=== PATIENT | female | born 1940 | race Caucasian/White ===

== ENCOUNTER 2017-11-23 16:52 | Emergency (ER) | payer MEDICARE, OTHER ==
[~2017-11-23] VITALS: Ht 172.7 cm; Wt 71.5 kg
[~2017-11-23 16:52] MED LIST changes: -BACTRIM DS TAB1 EAC1 PO; -BENADRYL25 MG PO; -CARVEDILOL12.5 MG PO; -MEDROLDOSEPACK PO; -NEURONTIN 400M400 M2 PO; -PEPCID20 MG PO; -PERCOCET 5-3251 EACH PO; -PREDNISONE 20 M20 M1 PO
[2017-11-23] MEDS ORDERED: CARVEDILOL12.5 MG PO (17:22)
[2017-11-23] MEDS ORDERED: BENADRYL25 MG PO (18:31)
[2017-11-23] MEDS ORDERED: MEDROLDOSEPACK PO (18:31)
[2017-11-23] MEDS ORDERED: PEPCID20 MG PO (18:31)
[2017-11-23 18:48] VITALS: BP 175/104
== END 2017-11-23 18:49 | disposition home or self-care (01) ==
LOC: M.ERS 16:52
DX: T78.3XXA Angioneurotic edema, initial encounter (principal); M79.7 Fibromyalgia; F32.9 Major depressive disorder, single episode, unspecified; F41.9 Anxiety disorder, unspecified; K21.9 Gastro-esophageal reflux disease without esophagitis; M19.90 Unspecified osteoarthritis, unspecified site; I10 Essential (primary) hypertension; F17.210 Nicotine dependence, cigarettes, uncomplicated; Z95.5 Presence of coronary angioplasty implant and graft; Z88.8 Allergy status to other drugs, medicaments and biological substances

== ENCOUNTER → 2017-11-23 | Outpatient (CLI) | payer MEDICARE, OTHER ==
[~2017-11-23] MED LIST: AMBIEN 5 MG TABL5 M1 PO; AMOXICILLIN 50500 MG PO; ASPIR 8181 MG PO; ASPIRIN325 PO; AUGMENTIN 875875 MG PO; BACTRIM DS TAB1 EAC1 PO; BENADRYL25 MG PO; BYSTOLIC 5 MG5 M1 PO; CALCIUM PO; CARDURA4 MG PO; CARVEDILOL12.5 MG PO; CARVEDILOL6.25 MG PO; CLONAZEPAM 1 MG1 M1; CYCLOBENZAPRINE5 MG PO; DICLOFENAC PO; FENTANYL PA25 MCG/HR TRANSDERM; FLAGYL500 MG; FLEXERIL; HYDROCODONE-AP1 EAC6 PO; HYDROCODONE-APA1 TA1 PO; LEXAPRO 10 MG T10 MG; LIORESAL 10 MG10 MG PO; LIPITOR20 MG PO; LISINOPRIL10 MG PO; MEDROLDOSEPACK PO; MELATONIN3 MG; MIRALAX255 GM; MIRTAZAPINE15 M2 PO; NEURONTIN 300300 M1 PO; NEURONTIN 400M400 M2 PO; NITROGLYCERIN0.3 MG SL; NITROGLYCERIN0.4 MG SL; NORCO 10-325 T1 EACH PO; NORCO 5-325 TA1 EACH PO; PEPCID20 MG PO; PERCOCET 5-3251 EACH PO; PLAVIX 75 MG TA75 MG PO; PREDNISONE 20 M20 M1 PO; PRILOSEC 20 MG20 MG; PRINIVIL20 MG PO; PROTONIX40 M1 PO; QUETIAPINE FUM100 MG PO; SEROQUEL 50 MG50 MG PO; ULTRAM 50MG TAB50 MG; VENLAFAXINE HC150 M1 PO; VENLAFAXINE HCL75 MG PO; VITAMIN D 5050000 I1 PO; ZESTORETIC 10-1 EACH PO; ZESTORETIC 20-1 EAC3 PO
[2017-11-23 10:27] LABS: CREATININE 1.3 mg/dL (0.6-1.3)
== END ==
LOC: M.LAB 09:54 → M.CT 14:00 → M.MRI 14:30
PROVIDERS: Internal Medicine
DX: K40.90 Unilateral inguinal hernia, without obstruction or gangrene, not specified as recurrent (principal); M47.26 Other spondylosis with radiculopathy, lumbar region; I71.4 Abdominal aortic aneurysm, without rupture; N20.0 Calculus of kidney; N28.1 Cyst of kidney, acquired; G89.29 Other chronic pain; M54.41 Lumbago with sciatica, right side; I10 Essential (primary) hypertension; Z95.5 Presence of coronary angioplasty implant and graft

== ENCOUNTER 2017-12-01 11:59 | Emergency (ER) | payer MEDICARE, OTHER ==
[~2017-12-01] VITALS: Ht 175.3 cm; Wt 68.5 kg
[~2017-12-01 11:59] MED LIST changes: +BENADRYL25 MG PO; +CARVEDILOL12.5 MG PO; +MEDROLDOSEPACK PO; +PEPCID20 MG PO
[2017-12-01] MEDS ORDERED: PERCOCET 5-3251 EACH PO (12:19)
[2017-12-01] MEDS ORDERED: PREDNISONE 20 M20 M1 PO (12:19)
[2017-12-01 12:27] VITALS: BP 183/98
== END 2017-12-01 12:28 | disposition home or self-care (01) ==
LOC: M.ERS 11:59
DX: G89.29 Other chronic pain (principal); M54.9 Dorsalgia, unspecified; Z76.0 Encounter for issue of repeat prescription; M79.7 Fibromyalgia; M19.90 Unspecified osteoarthritis, unspecified site; F41.9 Anxiety disorder, unspecified; K21.9 Gastro-esophageal reflux disease without esophagitis; I10 Essential (primary) hypertension; F17.210 Nicotine dependence, cigarettes, uncomplicated; Z95.5 Presence of coronary angioplasty implant and graft; Z88.8 Allergy status to other drugs, medicaments and biological substances

== ENCOUNTER 2017-12-08 20:22 | Emergency (ER) | payer MEDICARE, OTHER ==
[~2017-12-08] VITALS: Ht 175.3 cm; Wt 65.8 kg
[~2017-12-08 20:22] MED LIST changes: +PERCOCET 5-3251 EACH PO; +PREDNISONE 20 M20 M1 PO
[2017-12-08 21:03] LABS: URINE BILIRUBIN NEGATIVE (Negative); URINE BLOOD TRACE (Negative); URINE CLARITY CLEAR; URINE COLOR YELLOW; URINE GLUCOSE-RANDOM NEGATIVE (Negative); URINE KETONES NEGATIVE (Negative); URINE LEUKOCYTES-REFLEX NEGATIVE (Negative); URINE NITRITE-REFLEX NEGATIVE (Negative); URINE PROTEIN 1+ (Negative)
[2017-12-08 21:05] LABS: ABSOLUTE EOSINOPHILS 0.1 thou/uL (0.0-0.7); ABSOLUTE LYMPHOCYTES 2.7 thou/uL (0.8-5.3); ABSOLUTE MONOCYTES 0.8 thou/uL (0.0-1.2); ABSOLUTE NEUTROPHILS 4.9 thou/uL (1.6-8.1); BASOPHILS 0.2 %; EOSINOPHILS 1.2 %; HEMATOCRIT 39.4 % (37.0-47.0); HEMOGLOBIN 12.9 gm/dL (12.0-15.0); LYMPHOCYTES 31.5 %; MCH 31.1 pg (26.0-34.0); MCHC 32.8 g/dL (28.0-37.0); MCV 94.8 fL (80.0-100.0); MONOCYTES 9.4 %; MPV 8.3 fl. (7.2-11.1); NUCLEATED RBCS 0 /100WBC; PLATELET COUNT* 266 thou/uL (150-400); POLYS 57.7 %; RBC 4.16 mil/uL (4.20-5.00); RDW-CV 14.4 % (10.5-14.5); WBC 8.5 thou/uL (4.0-11.0)
[2017-12-08 21:16] LABS: BACTERIA-REFLEX 1-9 Few /HPF (None Seen); CASTS None Seen /LPF (None Seen); CRYSTALS None Seen /LPF (None Seen); SQUAMOUS >10 Many /LPF (0-3); URINE RBC 3-10 Few /HPF (0-2); URINE WBC-REFLEX 6-15 Few /HPF (0-5)
[2017-12-08] MEDS ORDERED: NEURONTIN 400M400 M2 PO (21:29)
[2017-12-08] MEDS ORDERED: BACTRIM DS TAB1 EAC1 PO (21:29)
[2017-12-08 21:30] LABS: ALBUMIN 3.7 g/dL (3.4-5.0); CALCIUM 9.5 mg/dL (8.5-10.1); POTASSIUM 4.4 mmol/L (3.5-5.1); TOTAL BILIRUBIN 0.5 mg/dL (<0.1-1.0); TOTAL PROTEIN 7.2 g/dL (6.4-8.2)
[2017-12-08 22:00] VITALS: BP 149/71
== END 2017-12-08 22:02 | disposition home or self-care (01) ==
LOC: M.ERS 20:22
PROVIDERS: Nurse Practitioner Family
DX: N30.90 Cystitis, unspecified without hematuria (principal); M54.5 Low back pain; K59.00 Constipation, unspecified; I10 Essential (primary) hypertension; F41.9 Anxiety disorder, unspecified; K21.9 Gastro-esophageal reflux disease without esophagitis; F32.9 Major depressive disorder, single episode, unspecified; M19.90 Unspecified osteoarthritis, unspecified site; M79.7 Fibromyalgia; F17.210 Nicotine dependence, cigarettes, uncomplicated; Z95.5 Presence of coronary angioplasty implant and graft; Z88.1 Allergy status to other antibiotic agents; Z88.8 Allergy status to other drugs, medicaments and biological substances

== ENCOUNTER → 2018-09-02 | Outpatient (CLI) | payer MEDICARE, OTHER ==
[~2018-09-02] MED LIST changes: +BACTRIM DS TAB1 EAC1 PO; +NEURONTIN 400M400 M2 PO
== END ==
LOC: M.ULTRA 14:30
DX: M79.89 Other specified soft tissue disorders (principal)

== ENCOUNTER → 2018-09-07 | Outpatient (CLI) | payer MEDICARE, OTHER | LOC: M.RAD 13:47 | DX: M81.0 Age-related osteoporosis without current pathological fracture (principal); Z88.8 Allergy status to other drugs, medicaments and biological substances; Z88.1 Allergy status to other antibiotic agents; Z78.0 Asymptomatic menopausal state ==